=== PATIENT | male | born 1965 | race Caucasian/White ===

== ENCOUNTER → 2016-06-10 | Outpatient (CLI) | payer OTHER ==
--- NOTE | 2016-06-13 15:04 | MR ---
EXAM DATE: 06/10/16 PATIENT'S AGE: 51 Patient: BYRON CROCKER Facility: [place], [place] Site . Site : [id number] Study: MRI Shoulder Right [id number]/13/2017 4:40:13 PM Ordering Physician: Perla Ruiz Final Report: HISTORY: Right shoulder pain after fall. Technique: MRI right shoulder without contrast. Comparison: None. Findings: Rotator cuff: Complete, full-thickness tears of the supraspinatus and infraspinatus tendons. Tear measures 4.2 cm in AP dimension. Tendon fibers are retracted medially to the level of the glenohumeral joint, 4.8 cm from the greater tuberosity. Few ill-defined tendon fiber remnants within the tendon gap. Moderate subscapularis tendinosis with low-grade articular surface fraying. Teres minor tendon is intact. Rotator cuff muscle bulk is maintained. Mild intramuscular edema in the supraspinatus, infraspinatus, subscapularis, and teres minor muscles. Acromioclavicular joint and coracoacromial arch: Moderate AC joint degenerative changes with moderate inferior hypertrophy. Type 2 acromial morphology. Acromiohumeral interval measures 5 mm. Small subacromial spur. The coracoacromial ligament is within normal limits. Coracoclavicular ligament is intact. Biceps-labral complex: Long head biceps tendon is intact. No biceps tendon subluxation. Small amount of debris in the biceps tendon sheath. Degeneration and fraying of the inferior labrum. No labral separation. Glenohumeral joint: Posterior subluxation of the humeral head. No focal cartilage defects. Small joint effusion. Bones and soft tissues: No fracture. No marrow replacing process. Subcortical cysts in the greater tuberosity. Moderate amount of fluid in the subacromial- subdeltoid bursa which communicates with the glenohumeral joint through the full -thickness rotator cuff defect. Deltoid is intact. Impression: 1. Complete, full-thickness tears of the supraspinatus and infraspinatus tendons with 4.8 cm medial tendon retraction. No muscle atrophy. 2. Subscapularis tendinosis with grade articular surface fraying. 3. Labral degeneration and fraying. 4. AC joint degenerative changes. Dictated by Gary Poe MD @ Jun 11 2016 11:39AM (Electronic Signature) Report Signed by Proxy and Original Signed Document filed in the Medical Record. [facility]
== END ==
LOC: MW.MRI 15:46
PROVIDERS: ATTEND General Practice
DX: S43.421A Sprain of right rotator cuff capsule, initial encounter (principal)
CPT/HCPCS: 73221-26-RT; 73221-RT